=== PATIENT | female | born 1970 | race Caucasian/White ===

== ENCOUNTER 2017-11-10 08:58 | Emergency (ER) | payer SELFPAY ==
[~2017-11-10 08:58] MED LIST: FIORIC PO; TRAM50 PO
[2017-11-10] MEDS ORDERED: IOHEXOL 350 MG/ML 10 ML VIAL (for RAD DIAG) IVCONTRAST ONE (08:59)
[2017-11-10 09:00] VITALS: BP 117/70; PULSE 92; RESP 16; TEMP 97.7; O2SAT 99
[2017-11-10] MEDS ORDERED: MORPHINE SULFATE 2 MG/ML INJ IV PUSH ONE (09:15)
[2017-11-10] MEDS ORDERED: ONDANSETRON HCL 4 MG/2 ML VIAL IV PUSH ONE (09:15)
[2017-11-10] MEDS ORDERED: LISI10TA3 PO (09:16)
[2017-11-10] MEDS ORDERED: LEVO25TA4 PO (09:16)
--- NOTE | 2017-11-10 09:20 | PD ---
HPI Chief Complaint: GI Complaint Time Seen by Provider: 09:08 Travel History International Travel<30 days: No Contact w/Intl Traveler<30days: No Traveled to known affect area: No History of Present Illness HPI 47yo F with PMH of ovarian cancer and is cancer free since 1999 presents to the ED with c/o lower abdominal pain for 4 days. Said pain is constant and more on the left sided. Associated with nausea and last vomiting was 3 days ago. Denies any fever, chest pain, sob, vaginal bleeding or discharge, dysuria, hematuria. Pt said she had twisting of her intestine in 02/2017 and had surgery to fix it. PFSH Past Medical History Cancer: Yes (OVARIAN/CERVICAL) Chemotherapy: Yes ([id number] NEVER WENT TO FOLLOW UP) Diminished Hearing: No Immunizations Current: Yes Radiation Therapy: Yes (IMPLANTS) Tetanus Vaccination: Unknown Influenza Vaccination: No ?: Not Menopausal: Yes Past Surgical History Abdominal Surgery: Yes (PARTIAL INTESTIONAL REMOVAL WITH RECONSTRUCTION DUE TO THE RADIATION) Section: Yes (X 2) Cholecystectomy: Yes Gynecologic Surgery: Yes ( X 2) Tonsillectomy: Yes Social History Alcohol Use: Yes (SOCIALLY) Tobacco Use: No Substance Use: No Allergies-Medications (Allergen,Severity, Reaction): Coded Allergies: No Known Allergies (Verified Adverse Reaction, Unknown, 11/10/17) Reported Meds & Prescriptions Reported Meds & Active Scripts Active Reported Levothyroxine (Levothyroxine Sodium) 25 Mcg Tab 25 Mcg PO DAILY Lisinopril 10 Mg Tab 10 Mg PO DAILY Review of Systems Except as stated in HPI: all other systems reviewed are Neg Physical Exam Narrative GENERAL: 47yo F in mild distress. SKIN: Focused skin assessment warm/dry. HEAD: Atraumatic. Normocephalic. CARDIOVASCULAR: Regular rate and rhythm. No murmur appreciated. RESPIRATORY: No accessory muscle use. Clear to auscultation. Breath sounds equal bilaterally. GASTROINTESTINAL: Abdomen soft, +TTP LLQ, suprapubic ttp. No rebound tenderness or guarding. MUSCULOSKELETAL: No obvious deformities. No clubbing. No cyanosis. No edema. NEUROLOGICAL: Awake and alert. No obvious cranial nerve deficits. Motor grossly within normal limits. Normal speech. PSYCHIATRIC: Appropriate mood and affect; insight and judgment normal. Data Data Last Documented VS Vital Signs Date Time Temp Pulse Resp B/P (MAP) Pulse Ox O2 Delivery O2 Flow Rate FiO2 11/10/17 09:34 92 18 118/82 (94) 96 Room Air 11/10/17 09:00 97.7 Orders Orders Complete Blood Count With Diff (11/10/17 09:15) Comprehensive Metabolic Panel (11/10/17 09:15) Lipase (11/10/17 09:15) Urinalysis - C+S If Indicated (11/10/17 09:15) Ct Abd/Pel W Iv Contrast(Rout) (11/10/17 09:15) Ondansetron Inj (Zofran Inj) (11/10/17 09:15) Morphine Inj (Morphine Inj) (11/10/17 09:15) Iohexol 350 Inj (Omnipaque 350 Inj) (11/10/17 08:59) Labs Laboratory Tests Test 11/10/17 09:15 11/10/17 09:40 White Blood Count 7.5 TH/MM3 Red Blood Count 4.17 MIL/MM3 Hemoglobin 12.3 GM/DL Hematocrit 33.7 % Mean Corpuscular Volume 81.0 FL Mean Corpuscular Hemoglobin 29.5 PG Mean Corpuscular Hemoglobin Concent 36.4 % Red Cell Distribution Width 12.9 % Platelet Count 270 TH/MM3 Mean Platelet Volume 8.6 FL Neutrophils (%) (Auto) 39.2 % Lymphocytes (%) (Auto) 50.6 % Monocytes (%) (Auto) 7.3 % Eosinophils (%) (Auto) 2.2 % Basophils (%) (Auto) 0.7 % Neutrophils # (Auto) 2.9 TH/MM3 Lymphocytes # (Auto) 3.8 TH/MM3 Monocytes # (Auto) 0.5 TH/MM3 Eosinophils # (Auto) 0.2 TH/MM3 Basophils # (Auto) 0.1 TH/MM3 CBC Comment AUTO DIFF Differential Comment AUTO DIFF CONFIRMED Platelet Estimate NORMAL Platelet Morphology Comment NORMAL Red Cell Morphology Comment NORMAL Blood Urea Nitrogen 11 MG/DL Creatinine 0.79 MG/DL Random Glucose 83 MG/DL Total Protein 7.6 GM/DL Albumin 3.5 GM/DL Calcium Level 9.1 MG/DL Alkaline Phosphatase 73 U/L Aspartate Amino Transf (AST/SGOT) 19 U/L Alanine Aminotransferase (ALT/SGPT) 24 U/L Total Bilirubin 0.3 MG/DL Sodium Level 138 MEQ/L Potassium Level 3.9 MEQ/L Chloride Level 101 MEQ/L Carbon Dioxide Level 29.3 MEQ/L Anion Gap 8 MEQ/L Estimat Glomerular Filtration Rate 77 ML/MIN Lipase 254 U/L Urine Color LIGHT-YELLOW Urine Turbidity CLEAR Urine pH 5.5 Urine Specific [place] 1.007 Urine Protein NEG mg/dL Urine Glucose (UA) NEG mg/dL Urine Ketones NEG mg/dL Urine Occult Blood NEG Urine Nitrite NEG Urine Bilirubin NEG Urine Urobilinogen LESS THAN 2.0 MG/DL Urine Leukocyte Esterase SMALL Urine RBC LESS THAN 1 /hpf Urine WBC 5 /hpf Urine Squamous Epithelial Cells 1 /hpf Urine Bacteria OCC /hpf Urine Mucus FEW /lpf Microscopic Urinalysis Comment CULT NOT INDICATED MDM Medical Decision Making Medical Screen Exam Complete: Yes Emergency Medical Condition: Yes Differential Diagnosis Diverticulitis vs. cystitis vs. partial bowel obstruction Narrative Course 47yo F with lower abdominal pain, more on left side for 4 days. Last vomit was 3 days ago but does feel nauseous. Labs reviewed, no leukocytosis. CMP unremarkable. Lipase normal. CT a/p showed fatty liver and previous cholecystectomy. No acute inflammatory process. Post surgical changes. Pt given morphine and zofran. Pt reevaluated at bedside and pain has resolved. Also tolerating PO. Return precautions given. Diagnosis Primary Impression: Abdominal pain Qualified Codes: R10.30 - Lower abdominal pain, unspecified Patient Instructions: General Instructions Departure Forms: Tests/Procedures Additional Instructions: Please follow up with your primary care physician in 2-3 days. Return to the ED if symptoms worsen. Med/Other Pt SpecificInfo: Prescription(s) given Scripts Acetaminophen (Tylenol) 325 Mg Tab 650 MG PO Q6H Y for PAIN SCALE 1 TO 4, #20 TAB 0 Refills Prov: Symone Staley 11/10/17 Disposition: 01 DISCHARGE HOME Condition: Stable Symone Staley DO Nov 10, 2017 09:20
[2017-11-10 09:34] VITALS: BP 118/82; PULSE 92; RESP 18; O2SAT 96
[2017-11-10 09:49] LABS: AUTOMATED NEUTROPHIL # 2.9 TH/MM3 (1.8-7.7); BASOPHIL # 0.1 TH/MM3 (0-0.2); BASOPHIL % 0.7 % (0.0-2.0); EOSINOPHIL # 0.2 TH/MM3 (0-0.4); EOSINOPHIL % 2.2 % (0.0-4.0); HEMATOCRIT 33.7 % (35.0-46.0); HEMOGLOBIN 12.3 GM/DL (11.6-15.3); LYMPH % 50.6 % (9.0-44.0); LYMPHOCYTE # 3.8 TH/MM3 (1.0-4.8); MEAN CORPUSCULAR HEMOGLOBIN 29.5 PG (27.0-34.0); MEAN PLATELET VOLUME 8.6 FL (7.0-11.0); MONO % 7.3 % (0.0-8.0); MONOCYTE # 0.5 TH/MM3 (0-0.9); NEUT % 39.2 % (16.0-70.0); PLATELET COUNT 270 TH/MM3 (150-450); RED BLOOD COUNT 4.17 MIL/MM3 (4.00-5.30); RED CELL DISTRIBUTION WIDTH 12.9 % (11.6-17.2); WHITE BLOOD COUNT 7.5 TH/MM3 (4.0-11.0)
[2017-11-10 09:52] LABS: MEAN CORPUSCULAR HGB CONC 36.4 % (32.0-36.0)
[2017-11-10 09:58] LABS: BACTERIA, URINE OCC /hpf; BILIRUBIN, URINE NEG (NEG); BLOOD, URINE NEG (NEG); GLUCOSE,URINE NEG (NEG); KETONE, URINE NEG (NEG); MUCUS URINE FEW /lpf (OCC); NITRITE,URINE NEG (NEG); PH, URINE 5.5 (5.0-8.5); SQUAMOUS EPITHELIAL CELL URINE 1 /hpf (0-5); URINE COLOR LIGHT-YELLOW (YELLW/STRAW); URINE LEUKOCYTE ESTERASE SMALL (NEG)
[2017-11-10 10:16] LABS: ALBUMIN 3.5 GM/DL (3.4-5.0); AST (GOT) 19 U/L (15-37); BICARBONATE 29.3 MEQ/L (21.0-32.0); BLOOD UREA NITROGEN 11 MG/DL (7-18); CALCIUM 9.1 MG/DL (8.5-10.1); CHLORIDE 101 MEQ/L (98-107); CREATININE 0.79 MG/DL (0.50-1.00); GLOMERULAR FILTRATION RATE 77 ML/MIN (>89); GLUCOSE,RANDOM 83 MG/DL (74-106); SODIUM (NA) 138 MEQ/L (136-145)
[2017-11-10 10:17] LABS: ALT (GPT) 24 U/L (10-53)
[2017-11-10 10:19] LABS: ALKALINE PHOSPHATASE 73 U/L (45-117); TOTAL BILIRUBIN ADULT 0.3 MG/DL (0.2-1.0); TOTAL PROTEIN 7.6 GM/DL (6.4-8.2)
--- NOTE | 2017-11-10 11:19 | RADRPT ---
EXAM DATE/TIME: 11/10/2017 10:56 [facility] COMPARISON: CT ABDOMEN & PELVIS W CONTRAST, May 27, 2012, 20:20. INDICATIONS : Constant lower abdominal pain, nausea. IV CONTRAST: 98 cc Omnipaque 350 (iohexol) IV ORAL CONTRAST: No oral contrast ingested. RADIATION DOSE: 6.81 CTDIvol (mGy) MEDICAL HISTORY : Hypertension. Ovarian and cervical cancer. SURGICAL HISTORY : Colon resection. Cholecystectomy. ENCOUNTER: Initial ACUITY: 4 - 6 days PAIN SCALE: 6/10 LOCATION: Bilateral lower quadrant TECHNIQUE: Volumetric scanning of the abdomen and pelvis was performed. Using automated exposure control and ad justment of the mA and/or kV according to patient size, radiation dose was kept as low as reasonably achievable to obtain optimal diagnostic quality images. DICOM format image data is available electro nically for review and comparison. FINDINGS: LOWER LUNGS: The visualized lower lungs are clear. LIVER: Decreased attenuation without lesion. There is no dilation of the biliary tree. Cholecystectomy clip s. SPLEEN: Normal size without lesion. PANCREAS: Within normal limits. KIDNEYS: Normal in size and shape. There is no mass, stone or hydronephrosis. ADRENAL GLANDS: Within normal limits. VASCULAR: There is no aortic aneurysm. BOWEL/MESENTERY: The stomach, small bowel, and colon demonstrate no acute abnormality. There is no free intraperitone al air or fluid. Post surgical changes with anastomotic sutures in the right lower abdomen. There is mildly prominent small bowel at the anastomosis but no obstruction. ABDOMINAL WALL: Within normal limits. RETROPERITONEUM: There is no lymphadenopathy. BLADDER: No wall thickening or mass. REPRODUCTIVE: Within normal limits. INGUINAL: There is no lymphadenopathy or hernia. MUSCULOSKELETAL: Within normal limits for patient age. CONCLUSION: 1. Fatty liver and previous cholecystectomy. 2. No acute inflammatory process. 3. Postsurgical changes. Jerry Waite MD on November 10, 2017 at 11:11 Board Certified Radiologist. This report was verified electronically.
[2017-11-10] MEDS ORDERED: TYLE325T PO (11:38)
== END 2017-11-10 12:00 | disposition home or self-care (01) ==
LOC: NEPE 08:58
DX: R10.30 Lower abdominal pain, unspecified (principal); I10 Essential (primary) hypertension; Z85.43 Personal history of malignant neoplasm of ovary
CPT/HCPCS: 74177; 80053; 81001; 83690; 85025; 96374; 96375; 99284; J2270; J2405; Q9967